=== PATIENT | female | born 1940 | race Caucasian/White ===

== ENCOUNTER 2016-12-25 06:30 | Day surgery (SDC) | payer MEDICARE ==
[~2016-12-25 06:30] MED LIST: Acetaminophen TAB* 325 MG PO PRN; Buffered Lidocaine 0.9% SYRIN* 5 ML/SYR SYRINGE INTRADERM ONE
[2016-12-25] MEDS ORDERED: fentaNYL* 50 MCG/ML 2 ML VIAL (100 MCG VIAL) ONE (07:38)
[2016-12-25] MEDS ORDERED: Midazolam* 1 MG/ML 5 ML VIAL (5 MG) ONE (07:38)
[2016-12-25] MEDS ORDERED: Propofol* 10 MG/ML 20 ML BTL IV PUSH ONE (08:11)
[2016-12-25 08:24] VITALS: BP 121/55
--- NOTE | 2016-12-25 10:41 | OP ---
DATE OF OPERATION: 12/25/16 [facility] DATE OF : 42 SURGEON: Tobi Arias MD [employer] OPERATOR: None. ANESTHESIOLOGIST: Reynold Salinas MD ANESTHESIA: Retrobulbar with intravenous sedation. PRE-OP DIAGNOSES: Cataract, pseudoexfoliation, small pupil left eye. POST-OP DIAGNOSES: Cataract, pseudoexfoliation, small pupil left eye. OPERATIVE PROCEDURE: Phacoemulsification and cataract extraction with posterior chamber intraocular lens implant, left eye. COMPLICATION: None. BLOOD LOSS: None. DESCRIPTION OF PROCEDURE: The patient was brought to the operating room and given a small amount of intra-venous sedation. A drop of Tetracaine was placed into her left eye. She was prepped and draped in the usual sterile fashion for ophthalmic surgery. Attention was directed to the left eye, where a speculum was placed. 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 The patient seemed uncomfortable. As the case began and given the difficulty level of the cataract surgery, it was decided it would be safer to proceed with a retrobulbar block. Thus, the speculum was removed and approximately 2 cc of 1% lidocaine without epinephrine placed on an Youngblood needle was injected in a retrobulbar fashion into the muscle cone of the left eye while a small amount of propofol had been given. The speculum was replaced and the eye was again irrigated with balanced saline solution. A paracentesis was created at the 5 o'clock position and 0.1 cc of 1 % preservative-free lidocaine was injected into the anterior chamber followed by DisCoVisc. The eye was digitally stabilized while a 2.75-mm keratome was used to create a triplanar clear corneal incision at the 3 o'clock position. The pupil measured approximately 5 mm in diameter and there was significant scrolling over the surface of the anterior capsule indicating a pseudoexfoliation material. A continuous curvilinear capsulorrhexis was created with a cystotome and Utrata forceps. Omidria was added to the irrigating solution. BSS on a cannula was used to gently hydrodissect the lens from the capsule. Phacoemulsification was performed in a [id number]-[id number] technique to create 4 fragments, which were removed. Residual cortical material was removed with irrigation and aspiration. During the entire case, the pressure within the irrigating system was reduced below normal to avoid undue pressure in the anterior chamber that might sublux the lens. The capsular bag, now empty, was inflated with DisCoVisc. An AU00T0 21 diopter lens was folded and inserted into the capsular bag. DisCoVisc was removed using irrigation and aspiration while the pressure in the system remained low. The Omidria succeeded in keeping the pupil at approximately 4-1/2 mm for the case. BSS on a cannula was used to hydrate the corneal stroma and seal the wound. At the end of the case, the pupil was round. The lens was centered and stable. The eye pressure appeared normal and the wound was watertight. More BSS was placed on the surface of the eye prior to removal of the speculum. Topical Maxitrol ointment was placed on the surface of the eye and the eye was closed, patched, and shielded. The patient was sent to recovery room in stable condition with postop instructions and followup appointment given. [id number]/[facility] #: [id number] [place]
[2016-12-25] MEDS ORDERED: Cyclopentolate 1% OPTH.SOL* 2 ML BTL ONE (12:52)
[2016-12-25] MEDS ORDERED: Buffered Lidocaine 0.9% SYRIN* 5 ML/SYR SYRINGE ONE (12:52)
[2016-12-25] MEDS ORDERED: Lidocaine 1% MPF* 2 ML VIAL ONE (12:52)
[2016-12-25] MEDS ORDERED: Phenylephrine 2.5% OPTH.SOL* 2 ML BTL ONE (12:52)
[2016-12-25] MEDS ORDERED: Tetracaine 0.5% OPTH.SOL 4 ML* 1 DROP BTL ONE (12:52)
[2016-12-25] MEDS ORDERED: Neomycin/Polymy/Dex OPHTH.OIN* 3.5 GM ONE (12:52)
[2016-12-25] MEDS ORDERED: Tropicamide 1% OPTH.SOL* BTL ONE (12:52)
[2016-12-25] MEDS ORDERED: Ketorolac 0.5% OPHTH (NF) 0.5 % 5 ML BTL ONE (12:53)
[2016-12-25] MEDS ORDERED: Phenylephr/Ketorolac 1%/0.3% OPH DROP BTL ONE (13:45)
== END 2016-12-25 08:43 | disposition home or self-care (01) ==
LOC: OREAST 06:30
PROVIDERS: ATTEND Ophthalmology
DX: H25.12 Age-related nuclear cataract, left eye (principal); H26.8 Other specified cataract; H57.03 Miosis; I10 Essential (primary) hypertension; J44.9 Chronic obstructive pulmonary disease, unspecified; E03.9 Hypothyroidism, unspecified; I65.22 Occlusion and stenosis of left carotid artery; J45.40 Moderate persistent asthma, uncomplicated; E78.5 Hyperlipidemia, unspecified; Z88.0 Allergy status to penicillin; Z87.891 Personal history of nicotine dependence; Z88.1 Allergy status to other antibiotic agents; Z79.82 Long term (current) use of aspirin; Z88.8 Allergy status to other drugs, medicaments and biological substances
CPT/HCPCS: A9270-GY; C9447; J2250; J2704; J3010; V2632